=== PATIENT | male | born 1945 | race Caucasian/White ===

== ENCOUNTER 2022-08-10 10:18 | Emergency (ER) | payer MEDICARE, BC ==
[2022-08-10] MEDS ORDERED: Ketorolac Tromethamine 30 MG/ML VIAL ONE (11:01)
[2022-08-10] MEDS ORDERED: Orphenadrine Citrate 60 MG/2 ML VIAL ONE (11:01)
[2022-08-10 12:35] LABS: Bilirubin Small (Negative); Blood, Urine Negative (Negative); Clarity Clear (Clear); Glucose, Urine (Dipstick) >=1000 mg/dL (Negative); Ketone, Urine Trace mg/dL (Negative); Leukocyte Negative (Negative); Nitrite Negative (Negative); Protein, Urine (Dipstick) Trace mg/dL (Neg-Trace); Urobilinogen 0.2 mg/dL (Less than 2)
== END 2022-08-10 12:45 | disposition home or self-care (01) ==
LOC: MADERS 10:18
DX: S39.012A Strain of muscle, fascia and tendon of lower back, initial encounter (principal); E11.9 Type 2 diabetes mellitus without complications; I10 Essential (primary) hypertension; X50.0XXA Overexertion from strenuous movement or load, initial encounter
CPT/HCPCS: 72128; 72131; 81003; 96374; 96375; J1885; J2360

== ENCOUNTER 2022-08-12 13:08 | Emergency (ER) | payer MEDICARE, BC ==
[2022-08-12] MEDS ORDERED: Orphenadrine Citrate 60 MG/2 ML VIAL ONE (13:43)
== END 2022-08-12 14:10 | disposition home or self-care (01) ==
LOC: MADERS 13:08
DX: M62.830 Muscle spasm of back (principal); I48.91 Unspecified atrial fibrillation; I10 Essential (primary) hypertension; E11.42 Type 2 diabetes mellitus with diabetic polyneuropathy; X50.0XXA Overexertion from strenuous movement or load, initial encounter
CPT/HCPCS: 96372; 99283; J2360